=== PATIENT | male | born 1940 | race Caucasian/White ===

== ENCOUNTER 2019-05-22 14:44 | Emergency (ER) | payer MEDICARE ==
--- NOTE | 2019-05-22 15:46 | CT ---
CT CERVICAL SPINE WITH CORONAL AND SAGITTAL REFORMATIONS: 05/22/19 HISTORY: Fall, injury, neck pain. FINDINGS/IMPRESSION: Multilevel degenerative changes are present. No acute fracture, subluxation or facet malalignment is identified. POS: [facility]
--- NOTE | 2019-05-22 15:54 | CT ---
CT BRAIN WITHOUT CONTRAST: 05/22/19 HISTORY: Fall, head trauma with laceration to the left side of the face. FINDINGS: There are changes of cortical atrophy and chronic small vessel ischemic disease. No evidence of acute infarct, hemorrhage, midline shift or abnormal extra-axial fluid collections are seen. The ventricul ar size is appropriate and the basilar cisterns patent. The bony calvarium is intact. There is high d ensity in the left maxillary sinus suspicious for hemorrhage. There are depressed fractures involving the anterior wall of the left maxillary sinus. This may extend into the floor of the left orbit. IMPRESSION: 1. No CT evidence of acute intracranial process. 2. Left sided facial bone fractures. POS: [facility]
--- NOTE | 2019-05-22 16:01 | RAD ---
LEFT SHOULDER THREE VIEWS: 05/22/10 HISTORY: Injury, left shoulder pain. FINDINGS/IMPRESSION: There are degenerative changes in the acromioclavicular joint. No acute fracture or dislocation is id entified. POS: [facility]
--- NOTE | 2019-05-22 16:02 | RAD ---
LEFT HAND THREE VIEWS: 05/22/19 HISTORY: Injury left hand pain. FINDINGS/IMPRESSION: There is an incompletely displaced fracture involving the shaft of the proximal phalanx of the fifth digit. POS: [facility]
[2019-05-22] MEDS ORDERED: HYDROcodone/Acetaminophen 5/325 mg Tablet ONE (17:16)
[2019-05-22] MEDS ORDERED: Adacel (T-DAP) 0.5 ML SYRINGE ONE (17:19)
[2019-05-22] MEDS ORDERED: Bacitracin 1 PK ONE (17:34)
--- NOTE | 2019-05-22 18:29 | CT ---
Exam: Maxillofacial CT without contrast HISTORY: Fall. Pain. Injury. Comparison none FINDINGS: Visualized brain parenchyma: Age-appropriate atrophy Orbits: Bilateral ocular lens implants are appropriately located. Both globes are intact. Right retro bulbar fat is preserved. There is air stranding along the inferior aspect of the left orbit. Left orbital floor fracture, comminuted is noted. Additional fractures are noted in the lateral wall of th e left orbit, anterior margin of the left maxillary sinus, lateral margin left mastoid sinus and posterior margin left maxillary sinus. There is posttraumatic blood the left maxillary sinus. There i s stranding of the subcutaneous fat anterior left mastoid sinus as well as along the left periorbital soft tissues. Coronal images demonstrate opacification of left ostiomeatal complex. Right ostiomeatal complex is unremarkable. No evidence of a nasal bone fracture or right orbital/maxillofacial fracture Bilateral mandibles and maxilla are intact. The a forementioned left orbital floor fracture does have depressed component. No obvious herniation of intraorbital contents. Correlate clinically for entrapment. Visualized aerodigestive tract in the upper cervical spine are unremarkable. IMPRESSION: 1. Left maxillofacial fracture involving the margins of the maxillary sinus. 2. Left orbital floor fracture with a slightly depressed component. No evidence of intraorbital rosette nt herniation. Correlate clinically for entrapment. 3. Associated posttraumatic changes of the left face and periorbital region. 4. Posttraumatic opacification of the left maxillary sinus. Transcribed Date/Time: 05/22/2019 6:43 PM
== END 2019-05-22 17:57 | disposition home or self-care (01) ==
LOC: SCSER 14:44
DX: S02.40DA Maxillary fracture, left side, initial encounter for closed fracture (principal); S62.617A Displaced fracture of proximal phalanx of left little finger, initial encounter for closed fracture; S05.12XA Contusion of eyeball and orbital tissues, left eye, initial encounter; E78.5 Hyperlipidemia, unspecified; I10 Essential (primary) hypertension; Z87.891 Personal history of nicotine dependence; W18.30XA Fall on same level, unspecified, initial encounter
CPT/HCPCS: 29125; 70450; 70486; 72125; 90471; 90715

== ENCOUNTER 2020-09-26 10:09 | Inpatient (IN) | payer MEDICARE ==
[~2020-09-26 10:09] MED LIST: FLU VACC QS2020-21(65YR UP)/PF 240 MCG/0.7 ML SYRINGE IM ONE
[2020-09-26 11:00] LABS: Hemoglobin 10.6 g/dL (14.0-18.0); Mean Corpuscular HGB CONC 33.6 g/dL (32.0-36.0); Mean Corpuscular Hemoglobin 32.1 pg (27.0-31.0); Mean Corpuscular Volume 95.6 fL (78.0-98.0); Mean Platelet Volume 7.8 fL (7.4-10.4); Platelet Count 252 thou/uL (130-400); RBC Distribution Width 12.7 % (11.5-14.5); Red Blood Cell (RBC) Count 3.31 mill/uL (4.70-6.10); White Blood Cell (WBC) Count 10.3 thou/uL (4.8-10.8)
[2020-09-26 11:16] LABS: Band 12 % (5-11); Eosinophils 2 % (0-10); Lymphocytes 7 % (21-51); MDiff Complete? YES; Monocytes 5 % (0-10); Neutrophil 74 % (42-75); Platelet Morphology Comment Appears Adequate; Polychromasia SLIGHT = 2-3 cells (100X) (0-2/hpf)
[2020-09-26 11:26] LABS: ALT (SGPT) 15 U/L (8-55); AST (SGOT) 22 U/L (5-34); Albumin 3.1 g/dL (3.4-4.8); Alkaline Phosphatase 204 U/L (40-110); Anion Gap 13 mmol/L (10-20); BUN (Urea Nitrogen) 24 mg/dL (8.4-25.7); Calc. Creatinine Clearance 0 mL/min (70-130); Calcium 9.1 mg/dL (7.8-10.44); Carbon Dioxide 26 mmol/L (23-31); Chloride 97 mmol/L (98-107); Globulin 3.5 g/dL (2.4-3.5); Glucose 206 mg/dL (83-110); Potassium 4.3 mmol/L (3.5-5.1); Protein, Total 6.6 g/dL (5.8-8.1); Sodium 132 mmol/L (136-145)
[2020-09-26 11:40] LABS: CKMB 1.3 ng/mL (0-6.6)
[2020-09-26] MEDS ORDERED: Azithromycin 500 MG VIAL ONE (12:17)
[2020-09-26] MEDS ORDERED: Aspirin Chewable 81 MG TAB ONE (12:17)
[2020-09-26 13:53] LABS: Troponin I 0.047 ng/mL (< 0.028)
[2020-09-26 14:07] LABS: SARS-CoV-2 NAA Rapid Test DETECTED (NotDetected)
[2020-09-26 17:16] LABS: Troponin I 0.047 ng/mL (< 0.028)
[2020-09-26 18:49] VITALS: BMI 24.0
[2020-09-26] MEDS ORDERED: Acetaminophen 325 MG TAB PO PRN (20:39)
[2020-09-26] MEDS ORDERED: Ondansetron PF 4 MG/2 ML Vial IVP PRN (20:40)
[2020-09-26] MEDS ORDERED: Colchicine 0.6 MG TAB PO SCH (20:45)
[2020-09-26] MEDS: Carvedilol 25 MG TAB PO SCH (21:06)
[2020-09-26] MEDS: Sodium Chloride 0.45% 1,000 ML IV SCH (21:06)
[2020-09-26] MEDS: Apixaban 2.5 MG TAB PO SCH (21:07)
[2020-09-27 01:23] LABS: Bacteria/HPF None Seen HPF (None Seen); Bilirubin Negative (Negative); Blood, Urine Negative (Negative); Clarity Clear (Clear); Glucose, Urine (Dipstick) Normal (Negative); Ketone, Urine Negative (Negative); Leukocyte Negative Leu/uL (Negative); Nitrite Negative (Negative); Protein, Urine (Dipstick) Negative (Neg-Trace); RBC/HPF 0-3 HPF (0-3); Specific Gravity, Urine 1.009 (1.002-1.036); Squamous Epithelial None Seen HPF (0-3); WBC/HPF 0-3 HPF (0-3)
[2020-09-27 01:24] LABS: Urine Culture Reflex No No
[2020-09-27 05:24] LABS: #Lymphocytes 0.5 thou/uL (1.20-3.40); #Monocytes 0.1 thou/uL (0.11-0.59); #Neutrophils 6.4 thou/uL (1.40-6.50); %Basophils 0.2 % (0.0-1.0); %Eosinophils 0.6 % (0.0-10.0); %Monocytes 1.8 % (0.0-10.0); %Neutrophils 90.4 % (42.0-75.0); Hemoglobin 10.1 g/dL (14.0-18.0); Mean Corpuscular HGB CONC 33.6 g/dL (32.0-36.0); Mean Corpuscular Hemoglobin 32.4 pg (27.0-31.0); Mean Corpuscular Volume 96.5 fL (78.0-98.0); Platelet Count 228 thou/uL (130-400); RBC Distribution Width 12.5 % (11.5-14.5); Red Blood Cell (RBC) Count 3.12 mill/uL (4.70-6.10)
[2020-09-27 05:25] LABS: Hemoglobin A1c 6.9 % (4.0-6.0)
[2020-09-27 05:47] LABS: Anion Gap 15 mmol/L (10-20); BUN (Urea Nitrogen) 26 mg/dL (8.4-25.7); CRP (Inflammatory) 8.04 mg/dL (= or < 0.5); Calc. Creatinine Clearance 52 mL/min (70-130); Carbon Dioxide 23 mmol/L (23-31); Chloride 100 mmol/L (98-107); Glucose 197 mg/dL (83-110); Potassium 3.9 mmol/L (3.5-5.1); Sodium 134 mmol/L (136-145)
[2020-09-27] MEDS: Apixaban 2.5 MG TAB PO SCH ×2 (08:52→20:45)
[2020-09-27] MEDS: Carvedilol 25 MG TAB PO SCH ×2 (08:53→20:44)
[2020-09-27] MEDS ORDERED: Ezetimibe 10 MG TAB PO SCH (09:00)
[2020-09-27] MEDS ORDERED: Zinc Sulfate 220 MG CAP PO SCH (09:00)
[2020-09-27] MEDS ORDERED: Colchicine 0.6 MG TAB PO SCH (09:00)
[2020-09-27] MEDS: Sodium Chloride 0.45% 1,000 ML IV SCH ×2 (09:17→19:26)
[2020-09-27] MEDS: metFORMIN 500 MG TAB PO SCH ×2 (11:15→11:33)
[2020-09-27] MEDS: Acetaminophen 325 MG TAB PO SCH ×3 (14:26→20:43)
[2020-09-27] MEDS ORDERED: Dexamethasone 4 mg/ml Vial SLOW IVP SCH (21:00)
[2020-09-27] MEDS ORDERED: Dexamethasone 20 MG/5 ML VIAL SLOW IVP SCH (23:30)
[2020-09-28] MEDS: Sodium Chloride 0.45% 1,000 ML IV SCH (04:39)
[2020-09-28 05:49] LABS: #Lymphocytes 0.5 thou/uL (1.20-3.40); #Monocytes 0.2 thou/uL (0.11-0.59); #Neutrophils 8.7 thou/uL (1.40-6.50); %Eosinophils 0.1 % (0.0-10.0); %Lymphocytes 5.2 % (21.0-51.0); %Monocytes 2.2 % (0.0-10.0); %Neutrophils 92.5 % (42.0-75.0); Hemoglobin 9.6 g/dL (14.0-18.0); Mean Corpuscular Hemoglobin 33.2 pg (27.0-31.0); Mean Corpuscular Volume 97.7 fL (78.0-98.0); Mean Platelet Volume 8.4 fL (7.4-10.4); Platelet Count 235 thou/uL (130-400); RBC Distribution Width 12.6 % (11.5-14.5); Red Blood Cell (RBC) Count 2.89 mill/uL (4.70-6.10); White Blood Cell (WBC) Count 9.4 thou/uL (4.8-10.8)
[2020-09-28 06:14] LABS: Anion Gap 14 mmol/L (10-20); BUN (Urea Nitrogen) 31 mg/dL (8.4-25.7); CRP (Inflammatory) 4.66 mg/dL (= or < 0.5); Calc. Creatinine Clearance 55 mL/min (70-130); Calcium 8.9 mg/dL (7.8-10.44); Carbon Dioxide 22 mmol/L (23-31); Chloride 101 mmol/L (98-107); Glucose 249 mg/dL (83-110); Sodium 133 mmol/L (136-145)
[2020-09-28] MEDS ORDERED: metFORMIN 500 MG TAB PO SCH (08:00)
[2020-09-28 09:05] VITALS: BP 138/79; TEMP 97.5
== END 2020-09-28 10:24 | disposition home or self-care (01) | DRG 177 ==
LOC: ERS 10:09 → 2SW 13:10
PROVIDERS: ADMIT Specialist; ATTEND Specialist
PROC: 8E0ZXY6 Isolation (ICD-10-PCS; principal; 2020-09-26)
PROC: XW13325 Transfusion of Convalescent Plasma (Nonautologous) into Peripheral Vein, Percutaneous Approach, New Technology Group 5 (ICD-10-PCS; 2020-09-26)
DX: U07.1 COVID-19 (principal); J12.82 Pneumonia due to coronavirus disease 2019; N17.9 Acute kidney failure, unspecified; E87.1 Hypo-osmolality and hyponatremia; I13.0 Hypertensive heart and chronic kidney disease with heart failure and stage 1 through stage 4 chronic kidney disease, or unspecified chronic kidney disease; Z23 Encounter for immunization; I48.91 Unspecified atrial fibrillation; N18.9 Chronic kidney disease, unspecified; R29.6 Repeated falls; D64.9 Anemia, unspecified; I50.9 Heart failure, unspecified; Z95.810 Presence of automatic (implantable) cardiac defibrillator; Z90.49 Acquired absence of other specified parts of digestive tract; Z98.890 Other specified postprocedural states; Z87.891 Personal history of nicotine dependence; Z79.01 Long term (current) use of anticoagulants; Z79.899 Other long term (current) drug therapy; F03.90 Unspecified dementia, unspecified severity, without behavioral disturbance, psychotic disturbance, mood disturbance, and anxiety; E11.22 Type 2 diabetes mellitus with diabetic chronic kidney disease; W19.XXXD Unspecified fall, subsequent encounter; S42.294D Other nondisplaced fracture of upper end of right humerus, subsequent encounter for fracture with routine healing
CPT/HCPCS: 0240U; 36415; 36416; 71045; 72170; 80048; 80053; 81001; 82553; 83036; 83880; 84484; 85025; 85379; 86140; 86850; 86900; 86901; 93005; 96365; J0456; J1100

== ENCOUNTER 2021-04-16 13:16 | Inpatient (IN) | payer MEDICARE ==
[2021-04-16 14:32] LABS: #Eosinphils 0.2 thou/uL (0.0-0.7); #Lymphocytes 1.4 thou/uL (1.20-3.40); #Monocytes 0.5 thou/uL (0.11-0.59); %Basophils 0.5 % (0.0-1.0); %Eosinophils 2.4 % (0.0-10.0); %Lymphocytes 19.1 % (21.0-51.0); %Monocytes 7.3 % (0.0-10.0); %Neutrophils 70.7 % (42.0-75.0); Hemoglobin 10.2 g/dL (14.0-18.0); Mean Corpuscular HGB CONC 33.1 g/dL (32.0-36.0); Mean Corpuscular Hemoglobin 32.5 pg (27.0-31.0); Mean Corpuscular Volume 98.2 fL (78.0-98.0); Mean Platelet Volume 8.4 fL (7.4-10.4); Platelet Count 188 thou/uL (130-400); Red Blood Cell (RBC) Count 3.14 mill/uL (4.70-6.10); White Blood Cell (WBC) Count 7.1 thou/uL (4.8-10.8)
[2021-04-16 15:00] LABS: ALT (SGPT) 19 U/L (8-55); AST (SGOT) 25 U/L (5-34); Albumin 3.8 g/dL (3.4-4.8); Alkaline Phosphatase 60 U/L (40-110); Anion Gap 12 mmol/L (10-20); BUN (Urea Nitrogen) 22 mg/dL (8.4-25.7); Bilirubin, Total 1.4 mg/dL (0.2-1.2); Calc. Creatinine Clearance 0 mL/min (70-130); Calcium 9.8 mg/dL (7.8-10.44); Carbon Dioxide 26 mmol/L (23-31); Chloride 102 mmol/L (98-107); Globulin 2.2 g/dL (2.4-3.5); Glucose 139 mg/dL (83-110); Sodium 136 mmol/L (136-145)
[2021-04-16] MEDS ORDERED: Nitroglycerin 0.4 MG TAB (25 Tab Bottle) SL PRN (16:45)
[2021-04-16] MEDS ORDERED: Aspirin 325 mg Enteric Coated Tablet PO SCH (16:45)
[2021-04-16] MEDS ORDERED: Zolpidem Tartrate 5 MG TAB PO PRN (16:46)
[2021-04-16] MEDS ORDERED: Milk Of Magnesia 30 ML UDCUP PO PRN (16:47)
[2021-04-16] MEDS ORDERED: Acetaminophen 325 MG TAB PO PRN (16:47)
[2021-04-16 18:13] LABS: SARS-CoV-2 NAA Rapid Test Not Detected (NotDetected)
[2021-04-16 20:32] LABS: #Eosinphils 0.2 thou/uL (0.0-0.7); #Lymphocytes 1.9 thou/uL (1.20-3.40); #Monocytes 0.6 thou/uL (0.11-0.59); #Neutrophils 3.6 thou/uL (1.40-6.50); %Basophils 0.4 % (0.0-1.0); %Eosinophils 3.6 % (0.0-10.0); %Lymphocytes 29.5 % (21.0-51.0); %Monocytes 9.8 % (0.0-10.0); %Neutrophils 56.8 % (42.0-75.0); Hemoglobin 10.6 g/dL (14.0-18.0); Mean Corpuscular Hemoglobin 34.3 pg (27.0-31.0); Mean Platelet Volume 8.4 fL (7.4-10.4); Platelet Count 175 thou/uL (130-400); RBC Distribution Width 12.9 % (11.5-14.5); Red Blood Cell (RBC) Count 3.09 mill/uL (4.70-6.10); White Blood Cell (WBC) Count 6.3 thou/uL (4.8-10.8)
[2021-04-16 20:49] LABS: ALT (SGPT) 17 U/L (8-55); AST (SGOT) 20 U/L (5-34); Albumin 3.9 g/dL (3.4-4.8); Alkaline Phosphatase 60 U/L (40-110); Anion Gap 14 mmol/L (10-20); BUN (Urea Nitrogen) 24 mg/dL (8.4-25.7); Calc. Creatinine Clearance 0 mL/min (70-130); Calcium 9.7 mg/dL (7.8-10.44); Carbon Dioxide 27 mmol/L (23-31); Chloride 101 mmol/L (98-107); Cholesterol 139 mg/dl (< 200 Desired); Globulin 2.1 g/dL (2.4-3.5); Glucose 157 mg/dL (83-110); HDL Cholesterol 28 mg/dL (>60 Neg Risk); LDL Cholesterol, Calculated 74 mg/dL; Potassium 3.7 mmol/L (3.5-5.1); Sodium 138 mmol/L (136-145); Triglycerides 183 mg/dL (Less than 150)
[2021-04-16] MEDS: Sodium Chloride 0.9% 1,000 ML IV SCH ×2 (21:34→22:11)
[2021-04-16] MEDS: Docusate 100 MG CAP PO SCH (21:35)
[2021-04-16] MEDS: Vitamin E 400 UNITS CAP PO SCH (21:36)
[2021-04-16] MEDS: Calcium Carbonate 600 MG TAB PO SCH (21:36)
[2021-04-16] MEDS: Zinc Sulfate 220 MG CAP PO SCH (21:36)
[2021-04-16] MEDS: Ascorbic Acid 500 mg Chewable Tablet PO SCH (21:37)
[2021-04-17 05:36] LABS: #Basophils 0.1 thou/uL (0.0-0.2); #Eosinphils 0.2 thou/uL (0.0-0.7); #Lymphocytes 1.6 thou/uL (1.20-3.40); #Monocytes 0.6 thou/uL (0.11-0.59); #Neutrophils 3.5 thou/uL (1.40-6.50); %Basophils 0.9 % (0.0-1.0); %Eosinophils 4.1 % (0.0-10.0); %Lymphocytes 27.1 % (21.0-51.0); %Monocytes 9.9 % (0.0-10.0); Hemoglobin 9.2 g/dL (14.0-18.0); Mean Corpuscular Hemoglobin 34.2 pg (27.0-31.0); Mean Corpuscular Volume 97.9 fL (78.0-98.0); Mean Platelet Volume 8.4 fL (7.4-10.4); Platelet Count 156 thou/uL (130-400); RBC Distribution Width 12.9 % (11.5-14.5); Red Blood Cell (RBC) Count 2.68 mill/uL (4.70-6.10)
[2021-04-17 06:02] LABS: ALT (SGPT) 15 U/L (8-55); AST (SGOT) 18 U/L (5-34); Albumin 3.5 g/dL (3.4-4.8); Alkaline Phosphatase 54 U/L (40-110); Anion Gap 12 mmol/L (10-20); BUN (Urea Nitrogen) 23 mg/dL (8.4-25.7); Calc. Creatinine Clearance 33 mL/min (70-130); Calcium 9.7 mg/dL (7.8-10.44); Carbon Dioxide 27 mmol/L (23-31); Cardiac Risk 4.3 (Less than 4.5); Chloride 105 mmol/L (98-107); Cholesterol 116 mg/dl (< 200 Desired); Globulin 1.8 g/dL (2.4-3.5); Glucose 115 mg/dL (83-110); HDL Cholesterol 27 mg/dL (>60 Neg Risk); LDL Cholesterol, Calculated 66 mg/dL; Potassium 3.7 mmol/L (3.5-5.1); Protein, Total 5.3 g/dL (5.8-8.1); Sodium 140 mmol/L (136-145); Triglycerides 117 mg/dL (Less than 150)
[2021-04-17] MEDS ORDERED: Heparin 10,000 UNITS/ 10 ML VIAL ONE (06:47)
[2021-04-17] MEDS ORDERED: Fentanyl 100 MCG/2 ML VIAL ONE (07:22)
[2021-04-17] MEDS ORDERED: Midazolam HCl 2 mg/2 ml Vial ONE (07:23)
[2021-04-17] MEDS ORDERED: Lidocaine 1% (PF) 30 ML VIAL ONE (07:35)
[2021-04-17] MEDS ORDERED: Protamine Sulfate 50 MG/5 ML VIAL ONE (08:03)
[2021-04-17] MEDS ORDERED: Nitroglycerin 0.4 MG TAB (25 Tab Bottle) SL PRN (08:35)
[2021-04-17] MEDS ORDERED: Sodium Chloride 0.9% 200 ML IV PRN (08:35)
[2021-04-17] MEDS ORDERED: Sodium Chloride 0.9% 1,000 ML IV SCH (08:45)
[2021-04-17] MEDS ORDERED: Multivit, Therapeutic 1 TAB PO SCH (09:00)
[2021-04-17] MEDS ORDERED: Furosemide 20 MG TAB PO SCH (09:00)
[2021-04-17] MEDS ORDERED: Magnesium Oxide 400 MG TAB PO SCH (09:00)
[2021-04-17] MEDS ORDERED: POTASSIUM 99 MG PO SCH (09:00)
[2021-04-17] MEDS ORDERED: Aspirin 325 mg Enteric Coated Tablet PO SCH (09:00)
[2021-04-17] MEDS: Ascorbic Acid 500 mg Chewable Tablet PO SCH ×3 (10:40→20:52)
[2021-04-17] MEDS: Docusate 100 MG CAP PO SCH ×2 (10:42→20:52)
[2021-04-17] MEDS: Calcium Carbonate 600 MG TAB PO SCH ×2 (10:42→22:05)
[2021-04-17] MEDS: Zinc Sulfate 220 MG CAP PO SCH ×2 (10:42→20:52)
[2021-04-17] MEDS: Vitamin E 400 UNITS CAP PO SCH ×2 (10:43→22:05)
[2021-04-17] MEDS: Ezetimibe 10 MG TAB PO SCH (10:43)
[2021-04-17] MEDS ORDERED: Iopamidol 370 76% 100 ML VIAL ONE (11:00)
[2021-04-17] MEDS ORDERED: Iopamidol 370 76% 50 ML VIAL FS ONE (11:00)
[2021-04-17] MEDS: Sodium Chloride 0.9% 1,000 ML IV SCH ×2 (15:21→23:52)
[2021-04-17] MEDS ORDERED: Communication Order-Pharmacy FS ONE (17:01)
[2021-04-18] MEDS: Sodium Chloride 0.9% 1,000 ML IV SCH (04:22)
[2021-04-18 05:50] LABS: Anion Gap 12 mmol/L (10-20); BUN (Urea Nitrogen) 17 mg/dL (8.4-25.7); Calc. Creatinine Clearance 38 mL/min (70-130); Calcium 9.5 mg/dL (7.8-10.44); Carbon Dioxide 24 mmol/L (23-31); Chloride 108 mmol/L (98-107); Glucose 89 mg/dL (83-110); Potassium 3.6 mmol/L (3.5-5.1); Sodium 140 mmol/L (136-145)
[2021-04-18] MEDS ORDERED: Albumin 5% 500 ML ONE (06:37)
[2021-04-18] MEDS ORDERED: Lidocaine 1% w/Epinephrine 1:100K 20 ML VIAL ONE (06:37)
[2021-04-18] MEDS ORDERED: Bupivacaine PF 0.5% 30 ML VIAL ONE (06:37)
[2021-04-18] MEDS ORDERED: PHENYLEPHRINE-NS 100 MCG/ML 10 ML SYRINGE ONE ×2 (09:57→10:16)
[2021-04-18] MEDS ORDERED: Fentanyl 250 MCG/5 ML VIAL ONE (09:59)
[2021-04-18] MEDS ORDERED: DOBUTamine 500 mg/250 ml 0 ML ONE (10:00)
[2021-04-18] MEDS ORDERED: CEFAZOLIN 2 GM in Premix Bag 1 BAG IVPB SCH (10:00)
[2021-04-18] MEDS ORDERED: DOPamine 400 MG/D5W 250 ML 0 ML ONE (10:00)
[2021-04-18] MEDS ORDERED: Heparin 10,000 UNITS/1 ML VIAL 30,000 UNITS in Sodium Chloride 0.9% 1,000 ML FS SCH (10:00)
[2021-04-18] MEDS ORDERED: Cardioplegic Soln 1,000 ML BAG ONE (10:16)
[2021-04-18] MEDS ORDERED: Lidocaine 2% PF 100 mg/5 ml Syringe ONE (10:16)
[2021-04-18] MEDS ORDERED: PROPOFOL 200 MG/20 ML VIAL ONE (10:16)
[2021-04-18] MEDS ORDERED: Rocuronium Bromide 10 MG/ML (10ML VIAL) ONE (10:16)
[2021-04-18] MEDS ORDERED: Calcium Chloride 1 GM/10 ML Abboject SYRINGE ONE (10:16)
[2021-04-18] MEDS ORDERED: Protamine Sulfate 250 MG/25 ML VIAL ONE (10:16)
[2021-04-18] MEDS ORDERED: Heparin 5,000 UNITS/ML VIAL ONE (10:16)
[2021-04-18] MEDS ORDERED: Sodium Bicarb 50 MEQ/50 ML Abboject 8.4% SYRINGE ONE (10:16)
[2021-04-18] MEDS ORDERED: Papaverine 60 MG/2 ML VIAL ONE (10:16)
[2021-04-18] MEDS ORDERED: Thrombin 5000 UNITS/5 ML VIAL ONE (10:16)
[2021-04-18] MEDS ORDERED: Vecuronium 10 MG VIAL ONE (10:16)
[2021-04-18] MEDS ORDERED: Mannitol 12.5 GM/50 ML ONE (10:16)
[2021-04-18] MEDS ORDERED: Potassium Chloride 60 MEQ/30 ML VIAL ONE (10:16)
[2021-04-18] MEDS ORDERED: Aminocaproic Acid 5 GM/20 ML VIAL ONE (10:16)
[2021-04-18] MEDS ORDERED: Magnesium Sulfate 1 GM/2 ML VIAL ONE (10:16)
[2021-04-18] MEDS ORDERED: Dexamethasone 4 mg/ml Vial ONE (13:00)
[2021-04-18] MEDS ORDERED: Ondansetron PF 4 MG/2 ML Vial IVP PRN (13:42)
[2021-04-18] MEDS ORDERED: Guaifenesin DM 100-10/5 ML UDCUP PO PRN (13:42)
[2021-04-18] MEDS ORDERED: Bisacodyl 10 MG SUPP PR PRN (13:42)
[2021-04-18] MEDS ORDERED: Phenylephrine 40 MG in Sodium Chloride 0.9% 250 ML 250 ML IVPB PRN (13:42)
[2021-04-18] MEDS ORDERED: Fentanyl 100 MCG/2 ML VIAL SLOW IVP PRN (13:42)
[2021-04-18] MEDS ORDERED: hydrALAZINE 20 MG/ML VIAL SLOW IVP PRN (13:42)
[2021-04-18] MEDS ORDERED: Morphine 2 MG/ML VIAL SLOW IVP PRN (13:42)
[2021-04-18] MEDS ORDERED: Nitroglycerin 50 MG/250 ML BOT 250 ML IVPB PRN (13:42)
[2021-04-18] MEDS ORDERED: Post-Op Insulin Drip Protocol IVPB ONE (13:42)
[2021-04-18] MEDS ORDERED: Hetastarch 6% 500 ML 500 ML IVPB PRN (13:42)
[2021-04-18] MEDS ORDERED: Acetaminophen 325 MG TAB PO PRN (13:42)
[2021-04-18] MEDS ORDERED: Potassium Chloride 20 MEQ/100 ML PREMIX BAG IVPB PRN (13:42)
[2021-04-18] MEDS ORDERED: D5 1/2 NS w/20 mEq KCL 1,000 ML IV SCH (13:42)
[2021-04-18] MEDS ORDERED: Norepinephrine 8 MG/0.9% NS 250 ML IVPB PRN (13:42)
[2021-04-18] MEDS ORDERED: Mag-Al 1200 mg/1200 mg/30 ML UDCUP PO PRN (13:42)
[2021-04-18] MEDS ORDERED: Promethazine HCl 25 MG/ML VIAL IM PRN (13:42)
[2021-04-18] MEDS ORDERED: Bisacodyl 5 MG TAB PO PRN (13:42)
[2021-04-18 13:56] LABS: Actual Bicarbonate (HCO3a) 23.8 mEq/L (22-28); Calcium, Ionized (arterial) 1.23 mmol/L (1.12-1.30); Carboxyhemoglobin (COHb) 0.3 gm% (0.0-3.0); Hemoglobin (Hb) 9.5 g/dL (14.0-18.0); Potassium - ABG Lab 3.91 mmol/L (3.70-5.30); pH, Arterial 7.39 (7.35-7.45)
[2021-04-18 14:10] LABS: Puncture Site Arterial Line
[2021-04-18] MEDS ORDERED: Insulin Regular 300 UNITS/3 ML VIAL SC PRN (14:15)
[2021-04-18] MEDS ORDERED: Dextrose 5% in Water 1,000 ML IV PRN (14:15)
[2021-04-18] MEDS ORDERED: Lantus 1000 UNITS/10 ML VIAL SC PRN (14:15)
[2021-04-18] MEDS ORDERED: Dextrose 50% Abboject 50 ML SYRINGE SLOW IVP PRN (14:15)
[2021-04-18] MEDS ORDERED: HUMULIN R 100 UNITS in Sodium Chloride 0.9% 100 ML IVPB SCH (14:15)
[2021-04-18 14:22] LABS: #Eosinphils 0.2 thou/uL (0.0-0.7); #Lymphocytes 1.5 thou/uL (1.20-3.40); #Monocytes 0.6 thou/uL (0.11-0.59); %Basophils 0.2 % (0.0-1.0); %Eosinophils 1.6 % (0.0-10.0); %Lymphocytes 10.5 % (21.0-51.0); %Neutrophils 83.7 % (42.0-75.0); Hemoglobin 9.2 g/dL (14.0-18.0); Mean Corpuscular HGB CONC 32.2 g/dL (32.0-36.0); Mean Corpuscular Hemoglobin 32.2 pg (27.0-31.0); Mean Corpuscular Volume 99.8 fL (78.0-98.0); Mean Platelet Volume 8.4 fL (7.4-10.4); Platelet Count 125 thou/uL (130-400); RBC Distribution Width 13.2 % (11.5-14.5); Red Blood Cell (RBC) Count 2.87 mill/uL (4.70-6.10); White Blood Cell (WBC) Count 14.4 thou/uL (4.8-10.8)
[2021-04-18 14:34] LABS: INR-International Normal Ratio 1.5; PTT 42.1 sec (22.9-36.1); Prothrombin Time 18.1 sec (12.0-14.7)
[2021-04-18 14:44] LABS: Anion Gap 10 mmol/L (10-20); BUN (Urea Nitrogen) 18 mg/dL (8.4-25.7); Calc. Creatinine Clearance 43 mL/min (70-130); Calcium 8.8 mg/dL (7.8-10.44); Carbon Dioxide 23 mmol/L (23-31); Chloride 113 mmol/L (98-107); Glucose 150 mg/dL (83-110); Potassium 4.1 mmol/L (3.5-5.1); Sodium 142 mmol/L (136-145)
[2021-04-18] MEDS: Fentanyl 100 MCG/2 ML VIAL SLOW IVP PRN (15:12)
[2021-04-18 16:40] LABS: Hemoglobin 10.1 g/dL (14.0-18.0)
[2021-04-18 16:52] LABS: Potassium 4.3 mmol/L (3.5-5.1)
[2021-04-18 17:14] LABS: Glucose 190 mg/dL (83-110)
[2021-04-18] MEDS: Amiodarone 450 MG in Dextrose 5% in Water 250 ML IVPB SCH (17:21)
[2021-04-18] MEDS: CEFAZOLIN 2 GM in Premix Bag 1 BAG IVPB SCH (17:25)
[2021-04-18 19:19] LABS: Actual Bicarbonate (HCO3a) 19.5 mEq/L (22-28); Base Excess (BEa) -5.3 mEq/L (-2.0 to +3.0); CO2 Tension 35.3 mmHg (35.0-45.0); Calcium, Ionized (arterial) 1.21 mmol/L (1.12-1.30); Hemoglobin (Hb) 10.3 g/dL (14.0-18.0); Potassium - ABG Lab 4.24 mmol/L (3.70-5.30); pH, Arterial 7.36 (7.35-7.45)
[2021-04-18 19:39] LABS: ALV-art Gradient 55.775 mmHg (0-20); Puncture Site LINE
[2021-04-18] MEDS ORDERED: Atorvastatin Calcium 20 MG TAB PO SCH (21:00)
[2021-04-18] MEDS: Ezetimibe 10 MG TAB PO SCH (21:16)
[2021-04-18] MEDS: Vitamin E 400 UNITS CAP PO SCH (21:16)
[2021-04-18] MEDS: Famotidine/PF 20 mg/2ml Vial SLOW IVP SCH (21:44)
[2021-04-19] MEDS: CEFAZOLIN 2 GM in Premix Bag 1 BAG IVPB SCH ×2 (00:06→09:10)
[2021-04-19] MEDS: Amiodarone 450 MG in Dextrose 5% in Water 250 ML IVPB SCH ×2 (03:14→18:42)
[2021-04-19] MEDS ORDERED: Phenylephrine 40 MG/NS 250 ML 40 MG in Premix Bag 1 BAG IVPB SCH (04:30)
[2021-04-19 04:31] LABS: #Lymphocytes 0.6 thou/uL (1.20-3.40); #Neutrophils 9.4 thou/uL (1.40-6.50); %Basophils 0.3 % (0.0-1.0); %Eosinophils 0.1 % (0.0-10.0); %Lymphocytes 5.4 % (21.0-51.0); %Monocytes 8.9 % (0.0-10.0); %Neutrophils 85.3 % (42.0-75.0); Hemoglobin 8.5 g/dL (14.0-18.0); Mean Corpuscular HGB CONC 33.8 g/dL (32.0-36.0); Mean Corpuscular Hemoglobin 34.1 pg (27.0-31.0); Mean Platelet Volume 9.2 fL (7.4-10.4); Platelet Count 126 thou/uL (130-400); RBC Distribution Width 13.5 % (11.5-14.5); Red Blood Cell (RBC) Count 2.49 mill/uL (4.70-6.10)
[2021-04-19 04:57] LABS: Anion Gap 12 mmol/L (10-20); BUN (Urea Nitrogen) 22 mg/dL (8.4-25.7); Calc. Creatinine Clearance 0 mL/min (70-130); Calcium 9.4 mg/dL (7.8-10.44); Carbon Dioxide 22 mmol/L (23-31); Chloride 111 mmol/L (98-107); Glucose 106 mg/dL (83-110); Potassium 4.3 mmol/L (3.5-5.1); Sodium 141 mmol/L (136-145)
[2021-04-19] MEDS: GLUCOSAMINE COMPLEX PO SCH ×2 (06:03→06:04)
[2021-04-19] MEDS ORDERED: Atorvastatin Calcium 40 MG TAB PO SCH (07:16)
[2021-04-19] MEDS: Aspirin 325 MG TAB PO SCH (09:11)
[2021-04-19] MEDS: Ezetimibe 10 MG TAB PO SCH (09:11)
[2021-04-19] MEDS ORDERED: GALANTAMINE HBR 8 MG PO SCH (21:00)
[2021-04-19] MEDS: Famotidine/PF 20 mg/2ml Vial SLOW IVP SCH (21:50)
[2021-04-19] MEDS: Fentanyl 100 MCG/2 ML VIAL SLOW IVP PRN (21:51)
[2021-04-20 04:03] LABS: #Eosinphils 0.1 thou/uL (0.0-0.7); #Lymphocytes 0.9 thou/uL (1.20-3.40); #Monocytes 1.1 thou/uL (0.11-0.59); #Neutrophils 13.4 thou/uL (1.40-6.50); %Basophils 0.2 % (0.0-1.0); %Eosinophils 0.6 % (0.0-10.0); %Lymphocytes 5.6 % (21.0-51.0); %Monocytes 7.1 % (0.0-10.0); %Neutrophils 86.5 % (42.0-75.0); Hemoglobin 8.6 g/dL (14.0-18.0); Mean Corpuscular HGB CONC 33.3 g/dL (32.0-36.0); Mean Corpuscular Hemoglobin 33.5 pg (27.0-31.0); Mean Platelet Volume 9.3 fL (7.4-10.4); Platelet Count 126 thou/uL (130-400); RBC Distribution Width 13.6 % (11.5-14.5); Red Blood Cell (RBC) Count 2.58 mill/uL (4.70-6.10); White Blood Cell (WBC) Count 15.5 thou/uL (4.8-10.8)
[2021-04-20 04:24] LABS: Anion Gap 14 mmol/L (10-20); BUN (Urea Nitrogen) 33 mg/dL (8.4-25.7); Calc. Creatinine Clearance 0 mL/min (70-130); Calcium 9.3 mg/dL (7.8-10.44); Carbon Dioxide 21 mmol/L (23-31); Chloride 108 mmol/L (98-107); Glucose 160 mg/dL (83-110); Potassium 4.2 mmol/L (3.5-5.1); Sodium 139 mmol/L (136-145)
[2021-04-20] MEDS: Aspirin 325 MG TAB PO SCH (08:13)
[2021-04-20] MEDS: Amiodarone 200 MG TAB PO SCH ×2 (08:13→23:17)
[2021-04-20] MEDS: Ezetimibe 10 MG TAB PO SCH (08:13)
[2021-04-20] MEDS ORDERED: Mag-Al 1200 mg/1200 mg/30 ML UDCUP PO PRN (13:16)
[2021-04-20] MEDS ORDERED: Nitroglycerin 0.4 MG TAB (25 Tab Bottle) SL PRN (13:16)
[2021-04-20] MEDS ORDERED: Mineral Oil ENEMA PR PRN (13:16)
[2021-04-20] MEDS ORDERED: Bisacodyl 5 MG TAB PO PRN (13:16)
[2021-04-20] MEDS ORDERED: Guaifenesin DM 100-10/5 ML UDCUP PO PRN (13:16)
[2021-04-20] MEDS ORDERED: diphenhydrAMINE 25 MG CAP PO PRN (13:16)
[2021-04-20] MEDS ORDERED: Zolpidem Tartrate 5 MG TAB PO PRN (13:16)
[2021-04-20] MEDS ORDERED: Bisacodyl 10 MG SUPP PR PRN (13:16)
[2021-04-21 05:20] LABS: Anion Gap 12 mmol/L (10-20); BUN (Urea Nitrogen) 46 mg/dL (8.4-25.7); Calc. Creatinine Clearance 22 mL/min (70-130); Calcium 8.8 mg/dL (7.8-10.44); Carbon Dioxide 22 mmol/L (23-31); Chloride 109 mmol/L (98-107); Glucose 117 mg/dL (83-110); Potassium 3.9 mmol/L (3.5-5.1); Sodium 139 mmol/L (136-145)
[2021-04-21] MEDS ORDERED: Enoxaparin Sodium 40 MG/0.4 ML SYRINGE SC SCH (09:00)
[2021-04-21] MEDS: Ezetimibe 10 MG TAB PO SCH (09:32)
[2021-04-21] MEDS: Amiodarone 200 MG TAB PO SCH ×2 (09:32→20:18)
[2021-04-21] MEDS: Aspirin 325 MG TAB PO SCH (09:32)
[2021-04-21] MEDS: Diltiazem 125 MG in Sodium Chloride 0.9% 100 ML IVPB SCH ×2 (10:08→17:48)
[2021-04-21] MEDS ORDERED: Sodium Chloride 0.9% 250 ML IV SCH (13:30)
[2021-04-21] MEDS: Furosemide 40 MG TAB PO SCH (13:47)
[2021-04-21] MEDS ORDERED: Sodium Chloride 0.9% 500 ML IV SCH (17:15)
[2021-04-21] MEDS ORDERED: Atorvastatin Calcium 20 MG TAB PO SCH (21:00)
[2021-04-22 05:01] LABS: Anion Gap 10 mmol/L (10-20); BUN (Urea Nitrogen) 45 mg/dL (8.4-25.7); Calc. Creatinine Clearance 26 mL/min (70-130); Calcium 8.8 mg/dL (7.8-10.44); Carbon Dioxide 22 mmol/L (23-31); Chloride 111 mmol/L (98-107); Glucose 132 mg/dL (83-110); Potassium 3.8 mmol/L (3.5-5.1); Sodium 139 mmol/L (136-145)
[2021-04-22 05:43] VITALS: BMI 21.4
[2021-04-22] MEDS ORDERED: Enoxaparin Sodium 30 MG/0.3 ML SYRINGE SC SCH (09:00)
[2021-04-22] MEDS: Ezetimibe 10 MG TAB PO SCH (09:20)
[2021-04-22] MEDS: Aspirin 325 MG TAB PO SCH (09:20)
[2021-04-22] MEDS: Amiodarone 200 MG TAB PO SCH ×2 (09:20→22:13)
[2021-04-22] MEDS: Furosemide 40 MG TAB PO SCH (11:40)
[2021-04-22] MEDS ORDERED: Ferrous Sulfate 325 MG TAB PO SCH (12:45)
[2021-04-23 04:50] LABS: Anion Gap 11 mmol/L (10-20); BUN (Urea Nitrogen) 43 mg/dL (8.4-25.7); Calc. Creatinine Clearance 30 mL/min (70-130); Calcium 8.7 mg/dL (7.8-10.44); Carbon Dioxide 23 mmol/L (23-31); Chloride 107 mmol/L (98-107); Glucose 124 mg/dL (83-110); Potassium 3.4 mmol/L (3.5-5.1); Sodium 138 mmol/L (136-145)
[2021-04-23] MEDS: Diltiazem 125 MG in Sodium Chloride 0.9% 100 ML IVPB SCH (05:36)
[2021-04-23] MEDS ORDERED: Ferrous Sulfate 325 MG TAB PO SCH (08:00)
[2021-04-23] MEDS: Furosemide 40 MG TAB PO SCH (08:10)
[2021-04-23] MEDS: Ezetimibe 10 MG TAB PO SCH (08:10)
[2021-04-23] MEDS: Aspirin 325 MG TAB PO SCH (08:10)
[2021-04-23 15:58] VITALS: TEMP 98
[2021-04-23 17:31] VITALS: BP 117/62
== END 2021-04-23 18:15 | disposition home or self-care (01) | DRG 234 ==
LOC: ERS 13:16 → ERHOLD 14:17 → 2NO 19:00 → CCU 04-18 08:34 → OBSVTOIN 04-19 09:47 → 2NO 04-20 15:37
PROVIDERS: ADMIT Internal Medicine Cardiovascular Disease; ATTEND Internal Medicine Cardiovascular Disease
PROC: 4A023N7 Measurement of Cardiac Sampling and Pressure, Left Heart, Percutaneous Approach (ICD-10-PCS; 2021-04-17)
PROC: B2151ZZ Fluoroscopy of Left Heart using Low Osmolar Contrast (ICD-10-PCS; 2021-04-17)
PROC: B2111ZZ Fluoroscopy of Multiple Coronary Arteries using Low Osmolar Contrast (ICD-10-PCS; 2021-04-17)
PROC: 021109W Bypass Coronary Artery, Two Arteries from Aorta with Autologous Venous Tissue, Open Approach (ICD-10-PCS; principal; 2021-04-18)
PROC: 02100Z9 Bypass Coronary Artery, One Artery from Left Internal Mammary, Open Approach (ICD-10-PCS; 2021-04-18)
PROC: 06BP4ZZ Excision of Right Saphenous Vein, Percutaneous Endoscopic Approach (ICD-10-PCS; 2021-04-18)
PROC: 5A1221Z Performance of Cardiac Output, Continuous (ICD-10-PCS; 2021-04-18)
PROC: 04HY32Z Insertion of Monitoring Device into Lower Artery, Percutaneous Approach (ICD-10-PCS; 2021-04-18)
PROC: 30233N1 Transfusion of Nonautologous Red Blood Cells into Peripheral Vein, Percutaneous Approach (ICD-10-PCS; 2021-04-18)
DX: I25.10 Atherosclerotic heart disease of native coronary artery without angina pectoris (principal); N17.9 Acute kidney failure, unspecified; Z20.822 Contact with and (suspected) exposure to COVID-19; E78.5 Hyperlipidemia, unspecified; F03.90 Unspecified dementia, unspecified severity, without behavioral disturbance, psychotic disturbance, mood disturbance, and anxiety; I48.0 Paroxysmal atrial fibrillation; I08.3 Combined rheumatic disorders of mitral, aortic and tricuspid valves; E11.22 Type 2 diabetes mellitus with diabetic chronic kidney disease; I12.9 Hypertensive chronic kidney disease with stage 1 through stage 4 chronic kidney disease, or unspecified chronic kidney disease; N18.9 Chronic kidney disease, unspecified; D63.1 Anemia in chronic kidney disease; I25.2 Old myocardial infarction; R29.6 Repeated falls; Z79.01 Long term (current) use of anticoagulants; Z95.810 Presence of automatic (implantable) cardiac defibrillator; Z91.81 History of falling; Z90.49 Acquired absence of other specified parts of digestive tract; Z87.891 Personal history of nicotine dependence; Z88.6 Allergy status to analgesic agent; Z88.5 Allergy status to narcotic agent; Z88.8 Allergy status to other drugs, medicaments and biological substances; Z95.5 Presence of coronary angioplasty implant and graft
CPT/HCPCS: 36140; 36415; 36416; 36430; 71045; 80048; 80053; 80061; 82805; 85025; 85347; 85610; 85730; 86850; 86900; 86901; 93005; 93010; 93458; 93459; 93798; 94002; 99152; 99153; G0378; J0282; J0690; J1100; J1250; J1265; J1642; J1644; J1650; J1815; J2001; J2150; J2250; J2405; J2440; J2704; J2720; J3010; J3475; J3480; J3490; J7030; J7050; J7070; P9016; P9045; Q9967; S0017; S0020; S0028; U0002